=== PATIENT | female | born 1980 ===

== ENCOUNTER 2020-12-03 08:23 | Outpatient (CLI) | payer OTHER | END 2020-12-03 08:44 | disposition home or self-care (01) | LOC: SONOGRAMA 08:23 → MAMO-SONO 08:30 → SONOGRAMA 08:44 → MAMO-SONO 14:15 | PROVIDERS: ATTEND Orthopaedic Surgery | DX: M25.511 Pain in right shoulder (principal); M75.121 Complete rotator cuff tear or rupture of right shoulder, not specified as traumatic ==

== ENCOUNTER 2025-07-04 09:56 | Outpatient (CLI) | payer OTHER | END 2025-07-04 10:07 | disposition home or self-care (01) | LOC: SONOGRAMA 09:56 | PROVIDERS: ATTEND Physical Medicine & Rehabilitation | DX: M25.511 Pain in right shoulder (principal) ==